=== PATIENT | male | born 1985 | race Caucasian/White ===

== ENCOUNTER 2023-11-18 19:16 | Emergency (ER) | payer BC ==
--- NOTE | 2023-11-18 19:21 | ERPHSYRPT ---
- History of Present Illness Time Seen by Provider: 11/18/23 19:21 Source: patient Exam Limitations: no limitations Physician History: This is a 38-year-old white male patient who for the last week and a half has had upper and lower posterior molar pain that is worsening. Patient told the nurse that he had dental appointment. He has not been on any antibiotics. He has no known drug allergies. Timing/Duration: gradual onset Severity: moderate ENT Location: dental Prearrival Treatment: no prearrival treatment Modifying Factors: Improves With: other (Chewing worsens) Allergies/Adverse Reactions: No Known Drug Allergies Allergy (Unverified 11/18/23 19:23) Travel Risk - International Travel Have you traveled outside of the country in past 3 weeks: No - Coronavirus Screening Are you exhibiting any of the following symptoms?: No Close contact with a COVID-19 positive Pt in past 14-21 Days: No - Review of Systems Constitutional: No Symptoms Eyes: No Symptoms Ears, Nose, & Throat: Other (Dental pain left side posterior upper and lower fractured teeth) Respiratory: No Symptoms Cardiac: No Symptoms Abdominal/Gastrointestinal: No Symptoms Genitourinary Symptoms: No Symptoms Musculoskeletal: No Symptoms Skin: No Symptoms Neurological: No Symptoms Psychological: No Symptoms Endocrine: No Symptoms Hematologic/Lymphatic: No Symptoms - Past Medical History Pertinent Past Medical History: No - Past Surgical History Past Surgical History: Yes - Nursing Vital Signs Nursing Vital Signs: Initial Vital Signs Temperature 98.9 F 11/18/23 19:23 Pulse Rate 102 H 11/18/23 19:23 Respiratory Rate 18 11/18/23 19:23 Blood Pressure 129/99 11/18/23 19:23 O2 Sat by Pulse Oximetry 100 11/18/23 19:23 Pain Scale Pain Intensity 9 - Physical Exam General Appearance: no apparent distress, alert, anxiety Eye Exam: bilateral eye: normal inspection, PERRL, EOMI Ear Exam: bilateral ear: auricle normal, canal normal, TM normal Nasal Exam: normal inspection Throat Exam: dental tenderness (Upper and lower left side posterior dental fractures without abscess present), moist mucus membranes, No excessive drooling, No pharynx tenderness, No uvula swelling, No voice changes Neck Exam: normal inspection, non-tender, supple, full range of motion Cardiovascular/Respiratory Exam: chest non-tender, no respiratory distress Abdominal Exam: non-tender Neurologic Exam: alert, oriented x 3, cooperative, intervention nurse II-XII nml as tested, normal mood/affect, nml cerebellar function, nml station & gait, sensation nml Skin Exam: normal color, warm, dry SpO2 Interpretation: normal O2 Delivery: Room Air - Course Nursing assessment & vital signs reviewed: Yes Ordered Tests: Medication Summary Generic Name Dose Route Start Last Admin Trade Name Freq PRN Reason Stop Dose Admin Al Hydrox/Mg Hydrox/Simethicone 10 ml 11/18/23 19:48 Mag Hydrox/Al Hydrox/Simeth 30 Ml Udcup PO 11/18/23 19:49 STAT ONE Diphenhydramine HCl 25 mg 11/18/23 19:45 Diphenhydramine Hcl 12.5 Mg/5 Ml Oral Solution PO 11/18/23 19:46 STAT ONE Lidocaine HCl 10 ml 11/18/23 19:42 Lidocaine Hcl 2% Viscous 15 Ml Udcup PO 11/18/23 19:43 STAT ONE Discontinued Medications Generic Name Dose Route Start Last Admin Trade Name Freq PRN Reason Stop Dose Admin Amoxicillin 500 mg 11/18/23 19:37 Amoxicillin Trihydrate 500 Mg Capsule PO 11/18/23 19:38 STAT ONE Oxycodone/Acetaminophen 2 tab 11/18/23 19:37 Oxycodone / Apap 10/325 Mg 1 Tablet PO 11/18/23 19:38 SENT HOME W/ PATIENT STA - Progress Progress: unchanged Progress Note: 11/18/23 19:52 This patient's medical issue is one of the low complexity. Level complexity in the workup performed is based on review the patient's past medical history, review of patient's medication list, review of the patient's drug allergy list, history present illness and physical findings on examination. The workup in this patient does not require any laboratory radiographic studies. We will provide the patient with amoxicillin 500 mg orally here and follow-up with remotely sending 7-day amoxicillin 500 mg 3 times a day prescription. We also are making him a 1 to one-to-one mixture of Maalox, Benadryl elixir and viscous lidocaine 2% for him to soak cotton balls. He will use this every 6-8 hours to help relieve pain. We will also send a take-home packet of number 2 tablets of Benadryl 5/325 which she will take every 8 hours as needed for pain control. Counseled pt/family regarding: diagnosis, need for follow-up Medical Desision Making - Diagnostic Testing Diagnostic test were ordered, analyzed, and reviewed by me: No - Risk of complications The pt has a mod risk of morbidity or mortality based on: Need for prescription drug management - Departure Departure Disposition: Home Clinical Impression: Pain due to dental caries Condition: Stable Critical Care Time: No Additional Instructions: Take your Percocet 5325 take home pain medication as instructed. Use the cotton ball dental solution every 6-8 hours as needed/as instructed. Take your antibiotics as prescribed. After you complete the Percocet take-home pain medicine, alternate Tylenol and ibuprofen every 4 hours while awake. Call your dentist on 11/20/2023, to make an appointment for definitive care and intervention. Prescriptions: Amoxicillin 500 mg Cap [Amoxil 500 mg] 500 mg PO TID #21 cap
[2023-11-18 19:32] VITALS: BP 129/99; PULSE 102; RESP 18; TEMP 98.9; O2SAT 100
[2023-11-18] MEDS ORDERED: AMOXIL 500 MG ONE (19:51)
[2023-11-18] MEDS: AMOXIL 500 MG PO ONE (19:51)
[2023-11-18] MEDS: OXYCODONE-ACETAMINOPHEN 10-325 PO STA (19:51)
[2023-11-18] MEDS ORDERED: OXYCODONE-ACETAMINOPHEN 10-325 ONE (19:51)
[2023-11-18] MEDS ORDERED: MAALOX ES 30 ML UNIT DOSE ONE (19:59)
[2023-11-18] MEDS ORDERED: XYLOCAINE VISCOUS 2% 15 ML CUP ONE (19:59)
[2023-11-18] MEDS ORDERED: BENADRYL 12.5 MG/5 ML ONE (19:59)
[2023-11-18] MEDS: BENADRYL 12.5 MG/5 ML PO ONE (19:59)
[2023-11-18] MEDS: MAALOX ES 30 ML UNIT DOSE PO ONE (20:00)
[2023-11-18] MEDS: XYLOCAINE VISCOUS 2% 15 ML CUP PO ONE (20:00)
== END 2023-11-18 20:12 | disposition home or self-care (01) ==
LOC: ED 19:16
DX: K02.9 Dental caries, unspecified (principal); K08.89 Other specified disorders of teeth and supporting structures
CPT/HCPCS: 99282; A9270-GY

== ENCOUNTER 2023-11-29 14:57 | Emergency (ER) | payer BC ==
--- NOTE | 2023-11-29 15:07 | ERPHSYRPT ---
- History of Present Illness Time Seen by Provider: 11/29/23 15:07 Historian: patient, family Exam Limitations: no limitations Physician History: This is a 38-year-old white male patient who presents with localized left anterior chest pain that occurred yesterday while at work. Because of the patient's pain and that it occurred at work, patient states that his employer wants him to be evaluated before he is allowed to return to work. Patient denies presence of any chest pain at this time. He denies fever. He denies cough. He has no documented history of coronary artery disease. He has no history of pulmonary embolus. Patient has no known drug allergies and he takes no medications chronically. He does smoke cigarettes daily and occasionally uses marijuana. Patient refuses COVID testing. Patient needs a note to return to work. Timing/Duration: yesterday Activities at Onset: none Quality: aching Location: other Chest Pain Radiation: no radiation Severity of Pain-Max: mild (To moderate) Severity of Pain-Current: none Modifying Factors: Improves With: nothing Associated Symptoms: denies symptoms Prior Chest Pain/Cardiac Workup: no prior chest pain Nitro Today/Relief: no nitro taken today Aspirin Treatment Today: 81 mg x 4, provided by ED Allergies/Adverse Reactions: No Known Drug Allergies Allergy (Verified 11/29/23 14:58) Hx Tetanus, Diphtheria Vaccination/Date Given: Yes Hx Influenza Vaccination/Date Given: No Hx Pneumococcal Vaccination/Date Given: No Travel Risk - International Travel Have you traveled outside of the country in past 3 weeks: No - Coronavirus Screening Are you exhibiting any of the following symptoms?: No Close contact with a COVID-19 positive Pt in past 14-21 Days: No - Vaccine Status Have you recieved a Covid-19 vaccination: No - Review of Systems Constitutional: No Symptoms Eyes: No Symptoms Ears, Nose, & Throat: No Symptoms Respiratory: No Symptoms Cardiac: No Symptoms Abdominal/Gastrointestinal: No Symptoms Genitourinary Symptoms: No Symptoms Musculoskeletal: No Symptoms Skin: No Symptoms Neurological: No Symptoms Psychological: No Symptoms Endocrine: No Symptoms Hematologic/Lymphatic: No Symptoms Immunological/Allergic: No Symptoms All Other Systems: Reviewed and Negative - Past Medical History Pertinent Past Medical History: No - Past Surgical History Past Surgical History: Yes - Social History Smoking Status: Current every day smoker Exposure to second hand smoke: No Drug Use: none Patient Lives Alone: No - Nursing Vital Signs Nursing Vital Signs: Initial Vital Signs Temperature 99.9 F 11/29/23 14:58 Pulse Rate 99 H 11/29/23 14:58 Respiratory Rate 20 11/29/23 14:58 Blood Pressure 116/91 11/29/23 14:58 O2 Sat by Pulse Oximetry 100 11/29/23 14:58 Pain Scale Pain Intensity 2 - Physical Exam General Appearance: no apparent distress, alert Eye Exam: PERRL/EOMI, eyes nml inspection Ears, Nose, Throat Exam: normal ENT inspection, moist mucous membranes Neck Exam: normal inspection, non-tender, supple, full range of motion Respiratory Exam: normal breath sounds, lungs clear, airway intact, No chest tenderness, No respiratory distress Cardiovascular Exam: regular rate/rhythm, normal heart sounds, normal peripheral pulses Gastrointestinal/Abdomen Exam: soft, normal bowel sounds, No tenderness Rectal Exam: not done Back Exam: normal inspection, normal range of motion, No CVA tenderness, No vertebral tenderness Extremity Exam: normal inspection, normal range of motion, pelvis stable Neurologic Exam: alert, oriented x 3, cooperative, coding consultant II-XII nml as tested, normal mood/affect, nml cerebellar function, nml station & gait, sensation nml Skin Exam: normal color, warm, dry Lymphatic Exam: No adenopathy SpO2 Interpretation: normal O2 Delivery: Room Air - Course Nursing assessment & vital signs reviewed: Yes EKG Interpreted by Me: RATE (95), Sinus Rhythm, NORMAL AXIS, NORMAL INTERVALS, NORMAL QRS, NORMAL ST-T, Other (No acute ischemic changes on today's twelve-lead EKG) Ordered Tests: Active Orders 24 hr Category Date Time Status Greaser Operator STAT Care 11/29/23 15:08 Active EKG-ER Only STAT Care 11/29/23 15:07 Active Pulse Oximetry (ED) STAT Care 11/29/23 15:07 Active CHEST 1 VIEW (PORTABLE) Stat Exams 11/29/23 15:08 Completed CBC W DIFF Stat Lab 11/29/23 15:30 Completed CMP Stat Lab 11/29/23 15:30 Completed D-DIMER QUANTITATIVE Stat Lab 11/29/23 15:30 Completed TROPONIN Q4H Lab 11/29/23 15:30 Completed TROPONIN Q4H Lab 11/29/23 19:15 Ordered TROPONIN Q4H Lab 11/29/23 23:15 Ordered Medication Summary Discontinued Medications Generic Name Dose Route Start Last Admin Trade Name Varun PRN Reason Stop Dose Admin Aspirin 324 mg 11/29/23 15:07 11/29/23 15:30 Aspirin 81 Mg Tab.Chew PO 11/29/23 15:08 324 mg STAT ONE Administration Aspirin Confirm 11/29/23 15:29 Aspirin 81 Mg Tab.Chew Administered 11/29/23 15:30 Dose 324 mg .ROUTE .STK-MED ONE Lab/Rad Data: Laboratory Result Diagrams 11/29/23 15:30 11/29/23 15:30 Laboratory Results 11/29/23 11/29/23 11/29/23 Range/Units 15:30 15:30 15:30 WBC (4.0-10.5) x10^3/uL RBC (4.1-5.6) x10^6/uL Hgb (12.5-18.0) g/dL Hct (42-50) % MCV (78-100) fL MCH (26-32) pg MCHC (32-36) g/dL RDW (11.5-14.0) % Plt Count (150-450) x10^3/uL MPV (7.5-11.0) fL Gran % (36.0-66.0) % Immature Gran % (Auto) (0.00-0.4) % Nucleat RBC Rel Count (0.00-0.1) % Eos # (Auto) (0-0.5) x10^3/uL Immature Gran # (Auto) (0.00-0.03) x10^3u/L Absolute Lymphs (auto) (1.0-4.6) x10^3/uL Absolute Monos (auto) (0.0-1.3) x10^3/uL Absolute Nucleated RBC (0.00-0.01) x10^3u/L Lymphocytes % (24.0-44.0) % Monocytes % (0.0-12.0) % Eosinophils % (0.00-5.0) % Basophils % (0.0-0.4) % Absolute Granulocytes (1.4-6.9) x10^3/uL Basophils # (0-0.4) x10^3/uL D-Dimer < 0.19 (0.0-0.50) mg/L Sodium 142 (135-145) mmol/L Potassium 3.7 (3.5-5.1) mmol/L Chloride 106 (98-107) mmol/L Carbon Dioxide 29 (22-30) mmol/L Anion Gap 10.9 (5-15) MEQ/L BUN 13 (9-20) mg/dL Creatinine 0.90 (0.66-1.25) mg/dL Estimated GFR 113.5 ML/MIN Glucose 109 H (74-106) mg/dL Calcium 8.5 (8.4-10.2) mg/dL Total Bilirubin 0.30 (0.2-1.3) mg/dL AST 20 (17-59) U/L ALT 23 (0-50) U/L Alkaline Phosphatase 41 (38-126) U/L Troponin I < 0.012 (0.000-0.034) ng/mL Serum Total Protein 6.6 (6.3-8.2) g/dL Albumin 4.1 (3.5-5.0) g/dL 11/29/23 Range/Units 15:30 WBC 14.6 H (4.0-10.5) x10^3/uL RBC 5.03 (4.1-5.6) x10^6/uL Hgb 14.1 (12.5-18.0) g/dL Hct 43.5 (42-50) % MCV 86.5 (78-100) fL MCH 28.0 (26-32) pg MCHC 32.4 (32-36) g/dL RDW 15.6 H (11.5-14.0) % Plt Count 307 (150-450) x10^3/uL MPV 9.1 (7.5-11.0) fL Gran % 70.2 H (36.0-66.0) % Immature Gran % (Auto) 0.4 (0.00-0.4) % Nucleat RBC Rel Count 0.0 (0.00-0.1) % Eos # (Auto) 0.11 (0-0.5) x10^3/uL Immature Gran # (Auto) 0.06 H (0.00-0.03) x10^3u/L Absolute Lymphs (auto) 3.50 (1.0-4.6) x10^3/uL Absolute Monos (auto) 0.63 (0.0-1.3) x10^3/uL Absolute Nucleated RBC 0.00 (0.00-0.01) x10^3u/L Lymphocytes % 24.0 (24.0-44.0) % Monocytes % 4.3 (0.0-12.0) % Eosinophils % 0.8 (0.00-5.0) % Basophils % 0.3 (0.0-0.4) % Absolute Granulocytes 10.24 H (1.4-6.9) x10^3/uL Basophils # 0.04 (0-0.4) x10^3/uL D-Dimer (0.0-0.50) mg/L Sodium (135-145) mmol/L Potassium (3.5-5.1) mmol/L Chloride (98-107) mmol/L Carbon Dioxide (22-30) mmol/L Anion Gap (5-15) MEQ/L BUN (9-20) mg/dL Creatinine (0.66-1.25) mg/dL Estimated GFR ML/MIN Glucose (74-106) mg/dL Calcium (8.4-10.2) mg/dL Total Bilirubin (0.2-1.3) mg/dL AST (17-59) U/L ALT (0-50) U/L Alkaline Phosphatase (38-126) U/L Troponin I (0.000-0.034) ng/mL Serum Total Protein (6.3-8.2) g/dL Albumin (3.5-5.0) g/dL - Progress Progress: improved Air Movement: good Progress Note: 11/29/23 16:04 This patient's workup is 1 of moderate complexity. The level of complexity in the workup performed is based on review of the patient's past medical history, review of the patient's medication list, review of the patient's drug allergy list, history of present illness and physical findings on examination. The workup in this patient includes CBC, CMP, D-dimer, troponin level, chest x-ray and twelve-lead EKG. If these laboratory data results and the results of the twelve-lead EKG are negative for any acute or emergent issue, we will allow the patient to return to work tomorrow, 11/30/2023, without restrictions. 11/29/23 16:50 I reviewed and interpreted the patient's laboratory test results. The patient has leukocytosis of unexplained cause. He has not had a fever. He has not had coughing. He has no abdominal pain and he has no dysuria. There are no abnormal infected skin lesions. I will refer this patient back to his primary care provider to be evaluated as an outpatient. Chest x-ray was interpreted by the radiologist and I reviewed the impression. The impression states no acute cardiopulmonary process. Blood Culture(s) Obtained: No Antibiotics given: No Counseled pt/family regarding: lab results, diagnosis, need for follow-up, rad results Medical Desision Making - Diagnostic Testing Diagnostic test were ordered, analyzed, and reviewed by me: Yes Radiological Interpretation: Reviewed by me, Teleradiologist Report - Risk of complications Minimal Risk: Minimal risk of morbidity - Departure Departure Disposition: Home Clinical Impression: Nonspecific chest pain, Leukocytosis, unspecified Condition: Stable Critical Care Time: No Referrals: DOCTOR,NO FAMILY [Primary Care Provider] - Follow up/PCP as directed Additional Instructions: Drink plenty of fluids. Use Tylenol and ibuprofen for any fever or pain issues. Call your primary care provider tomorrow, 11/30/2023 to make arrangements for follow-up appointment for further evaluation management in the next 5 to 7 days. Forms: Work/School Release Form
[2023-11-29 15:24] VITALS: TEMP 99.9
[2023-11-29] MEDS ORDERED: BABY ASPIRIN 81 MG CHEW ONE (15:29)
[2023-11-29] MEDS: BABY ASPIRIN 81 MG CHEW PO ONE (15:30)
[2023-11-29 15:34] LABS: Absolute Neutrophil Ct (ANC) 10.24 x10^3/uL (1.4-6.9); BASOPHIL % 0.3 % (0.0-0.4); Basophil (Absolute #) 0.04 x10^3/uL (0-0.4); Eosinophil % 0.8 % (0.00-5.0); Eosinophil (Absolute #) 0.11 x10^3/uL (0-0.5); Hematocrit 43.5 % (42-50); Hemoglobin 14.1 g/dL (12.5-18.0); IMMATURE GRAN # 0.06 x10^3u/L (0.00-0.03); IMMATURE GRAN % 0.4 % (0.00-0.4); Mean Cell Volume 86.5 fL (78-100); Mean Corpuscular Hgb Concent. 32.4 g/dL (32-36); Mean Platelet Volume 9.1 fL (7.5-11.0); Monocyte (Absolute #) 0.63 x10^3/uL (0.0-1.3); Monocytes % 4.3 % (0.0-12.0); Neutrophil % 70.2 % (36.0-66.0); Platelet Count 307 x10^3/uL (150-450); Red Blood Count 5.03 x10^6/uL (4.1-5.6); Red Cell Distribution Width 15.6 % (11.5-14.0); White Blood Count 14.6 x10^3/uL (4.0-10.5)
[2023-11-29 15:48] LABS: ALBUMIN 4.1 g/dL (3.5-5.0); ANION GAP 10.9 MEQ/L (5-15); BILIRUBIN,TOTAL 0.3 mg/dL (0.2-1.3); Calcium 8.5 mg/dL (8.4-10.2); Creatinine 1 0.9 mg/dL (0.66-1.25); EST GLOMERULAR FILTRATION RATE 113.5 ML/MIN; Potassium 3.7 mmol/L (3.5-5.1); Total Protein 6.6 g/dL (6.3-8.2)
[2023-11-29 16:18] VITALS: BP 113/73; PULSE 73; RESP 9; O2SAT 97
--- NOTE | 2023-11-29 16:35 | XRAY ---
Indication: Chest pain. Comparison: None Portable chest hyperinflated and clear. Heart not enlarged. Bony thorax intact with minimal dextroscoliosis.
== END 2023-11-29 17:12 | disposition home or self-care (01) ==
LOC: ED 14:57
DX: R07.9 Chest pain, unspecified (principal); D72.829 Elevated white blood cell count, unspecified; F17.200 Nicotine dependence, unspecified, uncomplicated; Z20.828 Contact with and (suspected) exposure to other viral communicable diseases
CPT/HCPCS: 36415; 71045; 80053; 84484; 85025; 85379; 93005; 93041; 94760; 99284; A9270-GY